=== PATIENT | female | born 1965 | race Caucasian/White ===

== ENCOUNTER 2020-06-12 22:40 | Emergency (ER) | payer MEDICAID ==
[~2020-06-12] VITALS: Ht 152.4 cm; Wt 57.6 kg
[2020-06-12] MEDS ORDERED: IBUPROFEN600 M1 ORAL (22:59)
[2020-06-12] MEDS ORDERED: CYCLOBENZAPRINE10 MG ORAL (22:59)
[2020-06-12 23:02] VITALS: BP 117/75
--- NOTE | 2020-06-12 23:03 | Emergency Room Report ---
History of Present Illness General Chief Complaint: Lower Back Pain or Injury Source: Patient Present Illness HPI Disclaimer: Please note that this report is being documented using [employer]AGON technology. This can lead to erroneous entry secondary to incorrect interpretation by the dictating instrument. HPI: 55-year-old female presents for evaluation of back pain. Symptoms began 2 to 3 days ago. The patient states she bent over to leaf size picker some clothing that was on the floor after which she felt her back tighten up and felt immobilized. Has been complaining of bilateral lower lumbar pain ever since. Pain does not radiate. Denies fall or injury. She has been applying mentholated patches , using ibuprofen and hydrocodone prescribed by her PMD. Pain is been constant since. Denies dysuria, hematuria, urgency, hesitancy, urinary retention, fecal incontinence, weakness of the lower extremities, fever, chills, nausea, vomiting or abdominal pain. Otherwise in her usual state of health. She has had prior episodes of back pain which she described as sciatica but not for several years. No history of back surgery or significant injury. PMH: Denies PSH: Denied Allergies: Denied Social Hx: Denies drug or alcohol abuse Allergies: Coded Allergies: No Known Allergies (Unverified , 06/12/20) COVID-19 Screening Contact w/high risk pt: No Experienced COVID-19 symptoms?: No COVID-19 Testing performed FORMULA MAKER: No Patient History Last Menstrual Period: n/a Nursing Documentation-PMH Past Medical History: No Stated History Review of Systems All Other Systems: negative except mentioned in HPI Physical Exam Vital Signs Date Time Temp Pulse Resp B/P (MAP) Pulse Ox O2 Delivery O2 Flow Rate FiO2 06/12/20 22:44 97.9 79 18 117/75 (89) 97 Room Air General: Awake and alert, no acute distress HEENT: NC/AT. EOMI. Resp: Normal work of breathing Skin: Intact. No abrasions, laceration or rash over the exposed skin MSK: Normal tone and bulk. Moving all extremities. No obvious deformity. Ambulating though limping due to back pain. Strength in lower extremities 5 x 5 at the hips, knees and ankles bilaterally. Neuro: Awake and alert. Mentating appropriately. Sensation is intact to light touch of the dermatomes of lower extremities bilaterally. Spine: No significant tenderness in the midline in the thoracic or lumbosacral spine. Moderate paraspinal tenderness extending laterally out over the superior gluteals. Medical Decision Making Diagnostic Impression: Primary Impression: Strain of muscle, fascia and tendon of lower back, initial enc... ER Course Is a 55-year-old female presenting for evaluation of 3 days atraumatic back pain. Differential includes was not limited to ligamentous strain, spasm, herniated disc, degenerative disc disease, sciatica to name a few. There is no injury and little concern for fracture dislocation at this time. No clinical evidence of UTI, pyelonephritis, spinal epidural abscess, cauda equina syndrome , metastatic lesion. Patient has run out of Motrin requesting medication refill. We will give her intramuscular Toradol and oral Valium in the ED as I believe her symptoms are secondary to diffuse muscle spasms in the lower back. Her symptoms improved after medication administration. Will refill Motrin prescription and sent home on Flexeril. Will continue using her medicated patches which she states she has plenty of at home. Patient can follow-up with PMD orthopedic clinic as needed. Instructed to return to the emergency department new or worsening symptoms. Last Vital Signs Date Time Temp Pulse Resp B/P (MAP) Pulse Ox O2 Delivery O2 Flow Rate FiO2 06/12/20 22:44 97.9 79 18 117/75 (89) 97 Room Air Disposition: HOME, SELF-CARE Condition: Stable Scripts Cyclobenzaprine Hcl* (FLEXERIL*) 10 Mg Tablet 10 MG ORAL TID PRN for Muscle Spasm for 7 Days, #20 TAB Prov: Hamilton Sanon MD 06/12/20 Ibuprofen* (MOTRIN*) 600 Mg Tablet 600 MG ORAL Q6H PRN for For Pain, #30 TAB 0 Refills Prov: Hamilton Sanon MD 06/12/20 Referrals: [facility] Open 24 hour /7 days a week by Appointment Only [address] [facility] [id number] Patient Instructions: Lumbosacral Strain Additional Instructions: Please follow-up with your primary care doctor in the next 1 to 3 days to discuss this emergency department visit and for reevaluation. If you have any new or worsening symptoms please return to the emergency department for reevaluation. Please note that this report is being documented using [employer] technology. This can lead to erroneous entry secondary to incorrect interpretation by the dictating instrument. Hamilton Sanon MD Jun 12, 2020 23:03
[2020-06-12] MEDS ORDERED: Ketorolac 30mg Inj IM ONE (23:15)
[2020-06-13] VITALS: BP 115/75
== END 2020-06-13 00:01 | disposition home or self-care (01) ==
LOC: EMR 22:55
DX: S39.012A Strain of muscle, fascia and tendon of lower back, initial encounter (principal); X50.1XXA Overexertion from prolonged static or awkward postures, initial encounter; Y93.89 Activity, other specified; Y92.019 Unspecified place in single-family (private) house as the place of occurrence of the external cause
CPT/HCPCS: 96372; J1885; Z7502; 99283